=== PATIENT | male | born 1950 | race Hispanic/Latino ===

== ENCOUNTER 2018-01-08 11:53 | Emergency (ER) | payer BC ==
[~2018-01-08] VITALS: Ht 167.6 cm; Wt 104.3 kg
[~2018-01-08 11:53] MED LIST: ACTOS15 MG PO; ATENOLOL100 MG PO; BENAZEPRIL HCL20 MG PO; CRESTOR20 MG PO; GLIPIZIDE XL5 MG PO; JANUVIA100 MG PO; LEVEMIR100 UNIT/1 SQ; LIPITOR40 MG PO; METFORMIN HCL1000 M1 PO; PLAVIX75 MG PO; TRULICITY INJ
[2018-01-08] MEDS ORDERED: AZITHROMYCIN 250 MG TAB PO ONE (12:15)
[2018-01-08] MEDS ORDERED: ACETAMINOPHEN/CODEINE 300MG - 30MG TAB PO ONE (12:15)
[2018-01-08] MEDS ORDERED: PREDNISONE 20 MG TAB PO ONE (12:15)
--- NOTE | 2018-01-08 13:51 | Diagnostic Imaging Report ---
EXAMINATION: CHEST 2 VIEWS INDICATION: Cough COMPARISON: None FINDINGS: TUBES and LINES: Sternal wires.. LUNGS: Lungs are well inflated. Mild perihilar peribronchial hazy opacity could be due to bronchitis. There is no evidence of pneumonia or pulmonary edema. PLEURA: No pleural effusion or pneumothorax. HEART AND MEDIASTINUM: The cardiomediastinal silhouette is unremarkable. BONES AND SOFT TISSUES: No acute osseous lesion. Soft tissues are unremarkable. UPPER ABDOMEN: No free air under the diaphragm. IMPRESSION: Mild perihilar peribronchial hazy opacity could be due to bronchitis Signed by: Dr. Robert Ibarra M.D. on 01/08/2018 1:48 PM
[2018-01-08 16:26] VITALS: BP 168/80
== END 2018-01-08 15:06 | disposition home or self-care (01) ==
LOC: ER 11:53
DX: R05 Cough (principal)
CPT/HCPCS: 71046; 99283; J7512

== ENCOUNTER → 2018-01-14 | Outpatient (CLI) | payer BC ==
--- NOTE | 2018-01-14 13:37 | Diagnostic Imaging Report ---
EXAMINATION: PA and lateral views of the chest. COMPARISON: 01/08/2018 CLINICAL HISTORY: Bronchitis DISCUSSION: Lungs are well-inflated and without focal consolidation, pleural effusion, or pneumothorax. Perihilar hazy opacities are less conspicuous on the current study. Stable cardiomediastinal contour with median sternotomy wires and mediastinal surgical clips. No pulmonary edema. No acute osseous abnormality. IMPRESSION: No acute cardiopulmonary abnormalities. Signed by: Dr. Eliud Lazaro M.D. on 01/14/2018 1:34 PM
== END ==
LOC: RAD 12:43
PROVIDERS: ATTEND Family Medicine
DX: J40 Bronchitis, not specified as acute or chronic (principal)
CPT/HCPCS: 71046

== ENCOUNTER 2018-07-06 15:16 | Observation (INO) | payer BC ==
[2018-07-01 12:03] LABS: BASOPHILS # (AUTO) 0.1 (0.0-0.1); BASOPHILS % 0.6 % (0.0-1.0); EOSINOPHILS # (AUTO) 0.2 (0.0-0.4); EOSINOPHILS % 2.8 % (0.0-6.0); HEMATOCRIT 33.4 % (38.2-49.6); HEMOGLOBIN 11.1 g/dL (14.0-18.0); LYMPHOCYTES # (AUTO) 1.4 (1.0-3.2); LYMPHOCYTES % 16.9 % (18.0-39.1); MEAN CORPUSCULAR HEMOGLOBIN 29.2 pg (28-32); MEAN CORPUSCULAR HGB CONC 33.2 g/dL (31-35); MEAN CORPUSCULAR VOLUME 87.9 fL (81-99); MONOCYTES # (AUTO) 0.7 (0.2-0.8); NEUTROPHILS # (AUTO) 5.9 (2.1-6.9); PLATELET COUNT 220 x10e3/uL (140-360); RED CELL DISTRIBUTION WIDTH 12.9 % (11.7-14.4)
[2018-07-01 12:20] LABS: ALBUMIN/GLOBULIN RATIO 1.1 (0.8-2.0); ANION GAP 14.8 mmol/L (8-16); CALCIUM 9.8 mg/dL (8.4-10.2); CREATININE, SERUM 1.67 mg/dL (0.72-1.25); POTASSIUM 3.8 mmol/L (3.5-5.1)
[2018-07-06] VITALS (10 sets, daily range): BP systolic 129–162; BP diastolic 51–80
[~2018-07-06] VITALS: Ht 167.6 cm; Wt 102.5 kg
--- NOTE | 2018-07-06 10:45 | NUR ---
pt in ACU 10, prepped for procedure. Alert oriented and appropriate, PERRLA, respirations even and unlabored to room air. Pulses x4 extremities equal and palpable. Pedal pulses PT/DP strong and marked. Cap fill brisk < 3 sec. bilateral lower extremities symmetrical. Skin warm and dry integrity appears intact in general. IV 20g started to left forearm x1 attempt. presents healthy w/o s/s of infiltration or complaint. NS 0.9% started at 100ml/hr per dial flow. Abdomen soft and supple. pt offered toileting, denies need to urinate or defecate. Personal affects with patient. Family to bedside. Pt and family verbalizes understanding of POC. Pre-Op Meds benadryl and xanax given. bed low and locked, side rails up x2 and call light at side. -cgf
--- NOTE | 2018-07-06 14:12 | NUR ---
Received pt from lab rep to rm#[id number].Identiferx2 [address] [facility] fix Stent to circumflex via rt vascade site.No hematoma or bleeding noted at site. 2versed/50Fentynal Angio max drip completed with left arm iv site w/o infiltration and infusing via dial-a -flow at 200cchr. Back to baseline orientation Resp shallow and regular 100% sat on RA Abdomen soft and non tender Bilateral PPx4 DP/PT present. Flat till 5pm and dc papers with POC given to family Knows importance of f/o in 2wks Denies CP or SOB No gross issues pain pallor,pressure or dysrhythmia. ds/rn
[~2018-07-06 15:16] MED LIST changes: +ALLOPURINOL100 MG PO; +ALPRAZOLAM 0.5 MG TAB ONE; +ASPIRIN 325 MG TAB ONE; +BIVALRIUDIN 250 MG/VIAL VIAL IV ONE; +DIPHENHYDRAMINE HCL 25 MG CAP ONE; +FENTANYL CITRATE/PF 100MCG/2 ML INJ ONE; +FERROUS SULFAT325 MG PO; +HEPARIN SOD/SOD CHLORIDE 2,000 ML ONE; +HYDROCHLOROTHIA25 MG PO; +IOPAMIDOL 370 MG/ML 200 ML INFUS..BTL INJ ONE; +LASIX20 MG PO; +LIDOCAINE HCL 2% LOCAL 20 ML VIAL ONE; +LOSARTAN POTAS100 MG PO; +MIDAZOLAM HCL 2 MG/2 ML VIAL ONE; +PANTOPRAZOLE SO40 MG PO; +SODIUM BICARBO650 MG PO; +SODIUM CHLORIDE 0.9% 1000ML 1,000 ML ONE; +SODIUM CHLORIDE 0.9% 50ML 50 ML ONE; +TICAGRELOR 90 MG TABLET ONE
--- OUTSIDE RECORDS SUMMARY | 2018-07-06 15:18 | XMS REPORT ---
Author Author [facility] Address Unknown Phone Unavailable Care Team Providers Care Icer Machine Operator Name Role Phone MERCEDEZ HUTCHINSON Unavailable Unavailable Cyndee FISCHER Unavailable Unavailable Problems This patient has no known problems. Allergies, Adverse Reactions, Alerts This patient has no known allergies or adverse reactions. Medications This patient has no known medications. Results Test Description Test Time Test Comments Text Results Atomic Results Result Comments CHEST 2 VIEWS 2018-01-14 13:32:00 [place] [address] Patient Name: BUTCH MOREIRA MR #: [id number] : 1950 Age/Sex: 67/M Req #: [id number] Adm Physician: Ordered by: MERCEDEZ HUTCHINSON MD Report #: [id number] Location: [facility] Room/Bed: Procedure: [id number] DX/CHEST 2 VIEWS Exam Date: Exam Time: REPORT STATUS: Signed EXAMINATION: PA and lateral views of the chest. COMPARISON: 01/08/2018 CLINICAL HISTORY: Bronchitis DISCUSSION: Lungs are well- inflated and without focal consolidation, pleural effusion, or pneumothorax. Perihilar hazy opacities are less conspicuous on the current study. Stable cardiomediastinal contour with median sternotomy wires and mediastinal surgical clips. No pulmonary edema. No acute osseous abnormality. IMPRESSION: No acute cardiopulmonary abnormalities. Signed by: Dr. Shalini Gonzalez M.D. on 01/14/2018 1:34 PM Dictated By: SHALINI GONZALEZ MD Transcribed By: RASHARD on 01/14/181333 COPY TO: MERCEDEZ HUTCHINSON MD CHEST 2 VIEWS 2018-01-08 13:48:00 [place] [address] Patient Name: BUTCH MOREIRA MR #: [id number] : 1950 Age/Sex: 67/M Req #: [id number] Adm Physician: Ordered by: OLIVIA FISCHER MD Report #: [id number] Location: ER Room/Bed: Procedure: [id number] DX/CHEST 2 VIEWS Exam Date: 01/08/18 Exam Time: 1328 REPORT STATUS: Signed EXAMINATION: CHEST 2 VIEWS INDICATION: Cough COMPARISON: None FINDINGS: TUBES and LINES: Sternal wires.. LUNGS: Lungs are well inflated. Mild perihilar peribronchial hazy opacity could be due to bronchitis. There is no evidence of pneumonia or pulmonary edema. PLEURA: No pleural effusion or pneumothorax. HEART AND MEDIASTINUM: The cardiomediastinal silhouette is unremarkable. BONES AND SOFT TISSUES: No acute osseous lesion. Soft tissues are unremarkable. UPPER ABDOMEN: No free air under the diaphragm. IMPRESSION: Mild perihilar peribronchial hazy opacity could be due to bronchitis Signed by: Dr. Robert Ibarra M.D. on 01/08/2018 1:48 PM Dictated By: ROBERT IBARRA MD, MD 1348 Transcribed By: RASHARD on 01/08/18 1348 COPY TO: OLIVIA FISCHER MD
--- NOTE | 2018-07-06 15:30 | NUR ---
1530Trnasfer to floor care with tel to Ilya ROGERS with dc time 1700pm No gross issues pain pallor pressure or dysrhythmia.Rt groin vascade approach Dr Broderick Stent fix to circumflex. Has copies of dc papers Bedside nurse aware of pt status left pt with side rail s up call light at bedside and in low lock position. Has food tray to eat. Family at bedside. Denies CP or SOB iv site remains intact w/o s/s infiltration.Stasis remains present to vascade site. ds/rn
--- NOTE | 2018-07-06 21:20 | Operative Report ---
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 INDICATION: Coronary artery disease, abnormal stress test with angina. PROCEDURES PERFORMED: 1. Left heart catheterization, selective coronary angiography. 2. PTCA and stent placement to the circumflex artery. 3. Selective cannulation of one venous and one arterial bypass conduit. COMPLICATIONS: None. RECOMMENDATIONS: Staged intervention on the right coronary and the left anterior descending arteries. DESCRIPTION OF PROCEDURE: Access obtained in the right femoral artery. A 6-Iranian sheath was placed. Diagnostic coronary angiogram revealed patent left main, left anterior descending artery, proximal 80%, heavily calcified stenosis. Stent was patent in the mid left anterior descending artery, circumflex mid 80% stenosis. Right coronary artery had mid 90% stenosis, heavily calcified. The saphenous vein bypass to the right posterior descending artery was widely patent. Left internal mammary artery was occluded. No other saphenous vein bypasses were identified. Left ventricular end-diastolic pressure of 10. No gradient across aortic valve pullback. A decision was made to intervene on the circumflex artery. The patient received intravenous Angiomax and oral Brilinta and aspirin for anticoagulation. The left main was cannulated using an XB3.56-Iranian guiding catheter and short loose wires advanced across the lesion for support. Primary stent 2.0 x 8 followed by 2.5 mm noncompliant balloon for postdilatation. Excellent end result, less than 10% residual stenosis. EDITH-3 flow. No complications. Right groin repaired using Vascade closure device. The patient was discharged home same day. Bobby Broderick MD KSB/MODL /[id number]
== END 2018-07-06 17:06 | disposition home or self-care (01) ==
LOC: CATH LAB 15:16 → PACU V 15:18 → IMCU 15:55
PROVIDERS: ADMIT Internal Medicine Interventional Cardiology; ATTEND Internal Medicine Interventional Cardiology
DX: I25.118 Atherosclerotic heart disease of native coronary artery with other forms of angina pectoris (principal); Z01.812 Encounter for preprocedural laboratory examination; Z82.49 Family history of ischemic heart disease and other diseases of the circulatory system; E11.22 Type 2 diabetes mellitus with diabetic chronic kidney disease; I13.10 Hypertensive heart and chronic kidney disease without heart failure, with stage 1 through stage 4 chronic kidney disease, or unspecified chronic kidney disease; N18.9 Chronic kidney disease, unspecified; E78.5 Hyperlipidemia, unspecified; I25.810 Atherosclerosis of coronary artery bypass graft(s) without angina pectoris; Z95.1 Presence of aortocoronary bypass graft; Z95.5 Presence of coronary angioplasty implant and graft; Z79.4 Long term (current) use of insulin
CPT/HCPCS: 36415; 80053; 85025; 92928; 93459; C1725 ×2; C1760; C1769 ×2; C1874; C1887; G0378; J0583; J2001; J2250; J7030; Q9967

== ENCOUNTER → 2018-07-26 | Day surgery (SDC) | payer BC ==
[2018-07-22 15:14] LABS: BASOPHILS # (AUTO) 0.1 (0.0-0.1); BASOPHILS % 0.8 % (0.0-1.0); EOSINOPHILS # (AUTO) 0.3 (0.0-0.4); EOSINOPHILS % 3.3 % (0.0-6.0); HEMATOCRIT 30.6 % (38.2-49.6); HEMOGLOBIN 10.2 g/dL (14.0-18.0); LYMPHOCYTES # (AUTO) 1.8 (1.0-3.2); LYMPHOCYTES % 22.1 % (18.0-39.1); MEAN CORPUSCULAR HEMOGLOBIN 29.6 pg (28-32); MEAN CORPUSCULAR HGB CONC 33.3 g/dL (31-35); MEAN CORPUSCULAR VOLUME 88.7 fL (81-99); MONOCYTES # (AUTO) 0.8 (0.2-0.8); MONOCYTES % 9.6 % (4.4-11.3); NEUTROPHILS # (AUTO) 5.1 (2.1-6.9); NEUTROPHILS % 63.2 % (38.7-80.0); PLATELET COUNT 233 x10e3/uL (140-360); RED BLOOD COUNT 3.45 x10e6/uL (4.3-5.7); RED CELL DISTRIBUTION WIDTH 13.2 % (11.7-14.4)
[2018-07-22 15:34] LABS: ALBUMIN 3.7 g/dL (3.5-5.0); ALBUMIN/GLOBULIN RATIO 1.2 (0.8-2.0); CALCIUM 9.7 mg/dL (8.4-10.2); CREATININE, SERUM 1.58 mg/dL (0.72-1.25)
[2018-07-26] VITALS (7 sets, daily range): BP systolic 120–152; BP diastolic 49–67
[~2018-07-26] VITALS: Ht 167.6 cm; Wt 103.4 kg
[~2018-07-26] MED LIST changes: +ADENOSINE 6MG/2ML 0 ML ONE; -ALPRAZOLAM 0.5 MG TAB ONE; +ATROPINE SULFATE 0.1 MG/ML 10ML SYR ONE; -DIPHENHYDRAMINE HCL 25 MG CAP ONE; +SODIUM CHLORIDE 0.9% 500ML 0 ML ONE; +VERAPAMIL HCL 2.5 MG/ML 2 ML VIAL ONE
--- NOTE | 2018-07-26 15:26 | Operative Report ---
DATE OF PROCEDURE: 07/26/2018 SURGEON: Bobby Broderick MD INDICATION: 1. Coronary artery disease, abnormal stress test. 2. Staged intervention on the left anterior descending artery. COMPLICATIONS: None. BLOOD LOSS: Minimal. RECOMMENDATIONS: Staged intervention of the right coronary artery. DESCRIPTION OF PROCEDURE: Access was obtained in the right radial artery. A 6-Bulgarian sheath was placed. The patient received intravenous Angiomax for anticoagulation. The left main was cannulated using an XB 3.5, 6-Bulgarian guiding catheter. Heavily calcified left main stent and the circumflex artery was patent. Proximal left anterior descending artery heavily calcified, tight 80% stenosis. Stent in the mid left anterior descending artery, had mild in-stent restenosis. LV end-diastolic pressure of 12. No gradient across the aortic valve on pullback. A decision was made to intervene with atherectomy on the left anterior descending artery. A long Viper wire was advanced across the distal left anterior descending artery for support. Orbital atherectomy using a CSI [place] was performed following with balloon angioplasty with 2.5 mm balloon and then two overlapping 2.75 x 26 and 3.0 x 26 mm Resolute Balwinder stents were deployed at 12 and 14 atmospheres respectively in overlapping fashion. Excellent end stent stenosis, less than 10% residual stenosis, EDITH-3 flow. No complications. Wire and guide sheath were removed. TR band applied. The patient was discharged home same day. Bobby Broderick MD KSB/MODL /[id number]
--- NOTE | 2018-07-26 19:05 | NUR ---
Pt meets DC criteria after holding an additional expected hour due to oozing during TR air removal. right wrist assessed for s/s of complication and presence of hematoma. skin warm, dry, no discolor, and pulses present. IV removed from left forearm. Distal tip appears intact. VS WNL. Pt denies pain, sob, or need at this time. Family at bedside. Review of discharge paperwork and follow up instructions. verbalized understanding. Pt to wheelchair and transported to front of hospital. Transferred to private vehicle under own strength w/o incident with DC paperwork in hand. - c
== END | disposition home or self-care (01) ==
LOC: CATH LAB 10:10
PROVIDERS: ATTEND Internal Medicine Interventional Cardiology
DX: I25.118 Atherosclerotic heart disease of native coronary artery with other forms of angina pectoris (principal); I25.84 Coronary atherosclerosis due to calcified coronary lesion; T82.855A Stenosis of coronary artery stent, initial encounter; Y83.8 Other surgical procedures as the cause of abnormal reaction of the patient, or of later complication, without mention of misadventure at the time of the procedure; Z95.5 Presence of coronary angioplasty implant and graft; Z95.1 Presence of aortocoronary bypass graft; I13.0 Hypertensive heart and chronic kidney disease with heart failure and stage 1 through stage 4 chronic kidney disease, or unspecified chronic kidney disease; E11.22 Type 2 diabetes mellitus with diabetic chronic kidney disease; N18.3 Chronic kidney disease, stage 3 (moderate); I50.9 Heart failure, unspecified; Z79.4 Long term (current) use of insulin; Z79.84 Long term (current) use of oral hypoglycemic drugs; I87.2 Venous insufficiency (chronic) (peripheral); Z79.02 Long term (current) use of antithrombotics/antiplatelets
CPT/HCPCS: 36415; 80053; 85025; 92933; C1724; C1725; C1874 ×2; J0583; J2001; J2250; J7030; Q9967; 92924; 92928; J0153; J7040

== ENCOUNTER 2018-08-17 05:56 | Observation (INO) | payer BC ==
[2018-08-11 10:31] LABS: BASOPHILS # (AUTO) 0.1 (0.0-0.1); BASOPHILS % 0.8 % (0.0-1.0); EOSINOPHILS # (AUTO) 0.2 (0.0-0.4); EOSINOPHILS % 2.9 % (0.0-6.0); HEMATOCRIT 32.2 % (38.2-49.6); HEMOGLOBIN 10.7 g/dL (14.0-18.0); LYMPHOCYTES # (AUTO) 1.4 (1.0-3.2); LYMPHOCYTES % 18.3 % (18.0-39.1); MEAN CORPUSCULAR HEMOGLOBIN 29.6 pg (28-32); MEAN CORPUSCULAR HGB CONC 33.2 g/dL (31-35); MONOCYTES # (AUTO) 0.7 (0.2-0.8); MONOCYTES % 8.8 % (4.4-11.3); NEUTROPHILS # (AUTO) 5.4 (2.1-6.9); NEUTROPHILS % 68.4 % (38.7-80.0); PLATELET COUNT 217 x10e3/uL (140-360); RED BLOOD COUNT 3.62 x10e6/uL (4.3-5.7); RED CELL DISTRIBUTION WIDTH 12.8 % (11.7-14.4)
[2018-08-11 11:02] LABS: ALBUMIN 3.8 g/dL (3.5-5.0); ALBUMIN/GLOBULIN RATIO 1.1 (0.8-2.0); ANION GAP 15.5 mmol/L (8-16); CALCIUM 9.5 mg/dL (8.4-10.2); CREATININE, SERUM 1.8 mg/dL (0.72-1.25); POTASSIUM 4.5 mmol/L (3.5-5.1)
[~2018-08-17] VITALS: Ht 167.6 cm; Wt 103.9 kg
[2018-08-17] VITALS (15 sets, daily range): BP systolic 108–145; BP diastolic 54–95
[~2018-08-17 05:56] MED LIST changes: -ADENOSINE 6MG/2ML 0 ML ONE; -ASPIRIN 325 MG TAB ONE; -ATROPINE SULFATE 0.1 MG/ML 10ML SYR ONE; -BIVALRIUDIN 250 MG/VIAL VIAL IV ONE; -FENTANYL CITRATE/PF 100MCG/2 ML INJ ONE; -HEPARIN SOD/SOD CHLORIDE 2,000 ML ONE; -IOPAMIDOL 370 MG/ML 200 ML INFUS..BTL INJ ONE; -LIDOCAINE HCL 2% LOCAL 20 ML VIAL ONE; -MIDAZOLAM HCL 2 MG/2 ML VIAL ONE; -SODIUM CHLORIDE 0.9% 1000ML 1,000 ML ONE; -SODIUM CHLORIDE 0.9% 500ML 0 ML ONE; -SODIUM CHLORIDE 0.9% 50ML 50 ML ONE; -TICAGRELOR 90 MG TABLET ONE; -VERAPAMIL HCL 2.5 MG/ML 2 ML VIAL ONE
[2018-08-17] MEDS ORDERED: HEPARIN SOD (PORCINE) 1000 UNIT/ML 30ML ONE (07:02)
[2018-08-17] MEDS ORDERED: VERAPAMIL HCL 2.5 MG/ML 2 ML VIAL ONE (07:03)
[2018-08-17] MEDS ORDERED: SODIUM CHLORIDE 0.9% 1000ML 1,000 ML ONE (07:03)
[2018-08-17] MEDS ORDERED: FENTANYL CITRATE/PF 100MCG/2 ML INJ ONE (07:03)
[2018-08-17] MEDS ORDERED: IOPAMIDOL 370 MG/ML 200 ML INFUS..BTL INJ ONE ×2 (07:03→08:32)
[2018-08-17] MEDS ORDERED: HEPARIN SOD/SOD CHLORIDE 2,000 ML ONE (07:03)
[2018-08-17] MEDS ORDERED: LIDOCAINE HCL 2% LOCAL 20 ML VIAL ONE (07:03)
[2018-08-17] MEDS ORDERED: MIDAZOLAM HCL 2 MG/2 ML VIAL ONE (07:03)
[2018-08-17] MEDS ORDERED: NITROGLYCERIN/D5W 200 MCG/ML 250 ML ONE (07:04)
[2018-08-17] MEDS ORDERED: SODIUM CHLORIDE 0.9% 50ML 50 ML ONE (08:12)
[2018-08-17] MEDS ORDERED: BIVALRIUDIN 250 MG/VIAL VIAL IV ONE (08:12)
[2018-08-17] MEDS ORDERED: ATROPINE SULFATE 0.1 MG/ML 10ML SYR ONE (08:33)
[2018-08-17] MEDS ORDERED: TICAGRELOR 90 MG TABLET ONE (08:52)
[2018-08-17] MEDS ORDERED: ASPIRIN 325 MG TAB ONE (08:52)
--- NOTE | 2018-08-17 09:01 | NUR ---
0901am Bedside report received from SUE Link. Rm #[id number]. [facility] DR Broderick, RCA PCI stentx2. Rt TR band approach unable to fix. Rt groin approach achieved. Received with Alert oriented and appropriate, PERRLA, respirations even and unlabored to room air. Pulses x4 extremities equal and strong. Pedal pulses PT/DP palpable. Cap fill brisk < 3 sec. Skin warm and dry integrity appears D/I. IV 20g to left hand presents healthy w/o s/s of infiltration or complaint. Abdomen soft and supple. pt offered toileting, denies need to defecate. Voided qs Family called to bedside. Explained POC by Dr Broderick to pt. Reviewed POC to family,No personal affects with patient. Family remains at bedside Ebony . Pt and family verbalizes understanding of POC. Tele Observation bed ordered. Currently w/o complaint of pain or need. Monitor sinus aston.NO gross issues pain pallor pressure or dysrhythmia.NO oozing or hematoma noted. Offered ice chips only. leena/sue
--- NOTE | 2018-08-17 10:00 | NUR ---
1000am remains no gross issues pain, pallo,r pressure or dysrhythmia.No oozing or hematoma at rt groin sheath site Normal neruo vascular function.Ready for sheath pull at 1100am. Family remain at bedside POC discussed and copies of POC with family.leena/rn
--- NOTE | 2018-08-17 11:30 | NUR ---
1130 ACT 199 ok to pull sheath at 12noon 1201 sheath removed manual pressure held for 30min with stasis achieved Ewelina patch applied and ppx4 DP/PT No hematoma or oozing. Transfer to floor care(Tele observation)post for dc at 700pm. ds/rn
--- NOTE | 2018-08-17 12:05 | Operative Report ---
DATE OF PROCEDURE: 08/17/2018 SURGEON: Bobby Broderick MD INDICATION: Coronary artery disease, staged intervention on the right coronary artery. PROCEDURES PERFORMED: 1. Left heart catheterization, selective coronary angiography. 2. Stent placement to the mid right coronary artery. 3. Deployment of central venous catheter. 4. Deployment of right wrist TR band. COMPLICATIONS: Unable to cannulate RCA from right radial, femoral access was used. RECOMMENDATIONS: Dual antiplatelet therapy for life. DESCRIPTION OF PROCEDURE: Access obtained in the right radial artery. A 5-Polish sheath was placed. Extensive tortuosity of the right brachiocephalic artery, was not amenable to cannulate the right coronary artery with adequate support. Access obtained in the right femoral artery and in the right femoral vein for central venous access. The patient received intravenous Angiomax, oral Brilinta, and aspirin for anticoagulation. The right coronary artery was cannulated using a JR4 side-hole 6-Polish guiding catheter, 50% proximal and mid right coronary artery stenosis, moderate calcification, mid right coronary artery 80% focal stenosis. A short wire was advanced across the lesion. Primary stent 2.75 x 8 mm Resolute Baggs deployed at 18 atmospheres. Excellent end result, less than 10% residual stenosis, EDITH-3 flow. No complications. Right wrist TR band applied. The sheath in the groin removed under manual pressure. The patient observed for 6 hours in the hospital, subsequently discharged home same day. Bobby Broderick MD KSMinda/MODL /[id number]
--- NOTE | 2018-08-17 12:30 | NUR ---
ATTEMPTED TO TAKE 3ML OF AIR OUT OF ARM BAND. RIGHT WRIST SITE APPEARS TO HAVE SLIGHT OOZING. 2ML OF AIR PLACED BACK IN AND RIGHT WRIST SITE NOW APPEARS TO BE WITHOUT SIGNS OR SYMPTOMS OF ACTIVE BLEEDING AT THIS TIME. PULSE OX TO RIGHT THUMB. PATIENT AWAKE,ALERT, AND ORIENTEDX3. RESPIRATIONS EVEN AND UNLABORED ON ROOM AIR. PATIENT APPEARS TO BE IN NO SIGNS OF ACUTE DISTRESS AT THIS TIME.
--- NOTE | 2018-08-17 12:31 | NUR ---
HEMOSTASIS TO RIGHT GROIN SITE. HANNAH APPLIED TO RIGHT GROIN SITE. DRESSING PLACED PER PROTOCOL BY CRISTINA Cotter RN. RIGHT GROIN APPEARS TO BE WITHOUT SIGNS OR SYMPTOMS OF ACTIVE BLEEDING AT THIS TIME.
--- NOTE | 2018-08-17 13:15 | NUR ---
1315pm Phone report to Bertha Chatterjee for admission to tel obsv. till 5pm down time. Rt groin sheath pull stsis at 1231pm 30min hold Ewelina patch in place with ppx4 palpable. Rt TR band off with arm splint in place Adequate neuro vascular function. Tegederm 2x2 dressing with Coban. POC teaching completed with Eda ([phone]. Transported to floor care per Gudelia facilities operations technician box in place per stretcher Remain sinus bradycardia NO complaints CP or SOB.NO gross issues pain pallor pressure or dysthymia. ds/bertha
--- NOTE | 2018-08-17 13:15 | NUR ---
1315 completed rt tr band air release NO gross issues pain pallor pressure or dysrhythmia. Coban dressing with arm splint. for dc home tonight at 5pm Normal neuro vascular function and Rt groin site w/o s/s hematoma. Ewelina patch n place. Stasis achieved at 1231 with 30 minute hold manual pressure No gross issues pain pallor pressure or dysrhythmia.Escorted to floor care per RN staffvia stretcher and tele in place. Denies CP or SOB has copies of dc papers and aware of importance of f/o care. ds/rn
--- NOTE | 2018-08-17 13:22 | NUR ---
Patient transferred to unit from solar lab technician. Patient moved over to bed via 4 staff members. Right groin access checked and noted to be clean and dry. Pedal pulses palpable. No c/o pain. Patient to stay flat in bed until 1700. Will continue to monitor
--- NOTE | 2018-08-17 13:40 | NUR ---
RECEIVED PT TO FLOOR AA0X3. PT IS ON BED REST S/P HEART CATH RIGHT GROIN DRESSING IS DRY AND INTACT. BILATERAL PEDAL PULSES PRESENT 2+ RIGHT WRIST BRACE IN PLACE COVERED WITH COBAN DRY AND INTACT DIGITS TO THE RIGHT HAND ARE MOVABLE AND CAP REFILL IS PRESENT <3 SEC PT IS IN NO PAIN . FAMILY IS AT BEDSIDE. WILL CONTINUE TO MONITOR PT CLOSELY, SIDE RAILSX2, BED WHEELS LOCKED, CALL LIGHT IS WITHIN EASY REACH, INSTRUCTED TO CALL FOR ASSISTANCE IF NEDED
[2018-08-17] MEDS ORDERED: HYDRALAZINE HCL 20 MG/ML VIAL IV PRN (13:45)
[2018-08-17] MEDS ORDERED: MORPHINE SULFATE INJ 4 MG/ML INJ 1ML IV PRN (13:45)
--- NOTE | 2018-08-17 14:42 | NUR ---
RIGHT GROIN DRESSING IS DRY AND INTACT. BILATERAL PEDAL PULSES PRESENT 2+ RIGHT WRIST BRACE IN PLACE COVERED WITH COBAN DRY AND INTACT DIGITS TO THE RIGHT HAND ARE MOVABLE AND CAP REFILL IS PRESENT <3 SEC
--- NOTE | 2018-08-17 17:46 | NUR ---
PT OFF UNIT TO HOME DISCHARGE PAPERWORK AND INSTRUCTIONS GIVEN AT CLAY DIGGER PT HAS PAPERWORK WITH HIM UNDERSTANDS TO KEEP BRACE AND IMMOBILIZER ON RIGHT UNTIL TOMORROW MORNING RIGHT GROIN DRESSING REMAINS DRY WELL PT IV DC PRESSURE DRESSING APPLIED AND TAPED PT IS NOW OFF UNIT TO HOME
== END 2018-08-17 17:43 | disposition home or self-care (01) ==
LOC: CATH LAB 05:56 → CATH LAB V 11:55 → MED/SURG 13:21
PROVIDERS: ADMIT Internal Medicine Interventional Cardiology; ATTEND Internal Medicine Interventional Cardiology
DX: I25.708 Atherosclerosis of coronary artery bypass graft(s), unspecified, with other forms of angina pectoris (principal); Z01.812 Encounter for preprocedural laboratory examination; I10 Essential (primary) hypertension; I87.2 Venous insufficiency (chronic) (peripheral); Z95.1 Presence of aortocoronary bypass graft; Z95.5 Presence of coronary angioplasty implant and graft; E11.9 Type 2 diabetes mellitus without complications; Z79.84 Long term (current) use of oral hypoglycemic drugs; E78.5 Hyperlipidemia, unspecified; N28.9 Disorder of kidney and ureter, unspecified
CPT/HCPCS: 36415; 80053; 85025; 92928; C1725; C1760; C1766; C1769; C1874; G0378; J0583; J1644; J2001; J2250; J7030; Q9967; J3010

== ENCOUNTER → 2019-10-26 | Day surgery (SDC) | payer BC, OTHER ==
[2019-10-21 15:14] LABS: BASOPHILS # (AUTO) 0.1 (0.0-0.1); BASOPHILS % 0.7 % (0.0-1.0); EOSINOPHILS # (AUTO) 0.2 (0.0-0.4); EOSINOPHILS % 2.1 % (0.0-6.0); HEMATOCRIT 30.5 % (38.2-49.6); HEMOGLOBIN 9.8 g/dL (14.0-18.0); LYMPHOCYTES # (AUTO) 1.4 (1.0-3.2); MEAN CORPUSCULAR HEMOGLOBIN 28.2 pg (28-32); MEAN CORPUSCULAR HGB CONC 32.1 g/dL (31-35); MEAN CORPUSCULAR VOLUME 87.9 fL (81-99); MONOCYTES # (AUTO) 0.7 (0.2-0.8); MONOCYTES % 9.2 % (4.4-11.3); NEUTROPHILS # (AUTO) 4.7 (2.1-6.9); NEUTROPHILS % 66.4 % (38.7-80.0); PLATELET COUNT 210 x10e3/uL (140-360); RED BLOOD COUNT 3.47 x10e6/uL (4.3-5.7); RED CELL DISTRIBUTION WIDTH 13.6 % (11.7-14.4)
[~2019-10-26] MED LIST changes: +FENTANYL CITRATE/PF 100MCG/2 ML INJ ONE; +HYDRALAZINE HCL25 MG PO; +LIDOCAINE HCL 2% LOCAL INJ 5 ML SDV VIAL INJ ONE; +MIDAZOLAM HCL 2 MG/2 ML VIAL ONE; +OZEMPIC1 MG/0.75 SC; +PROPOFOL IV EMULSION 10 MG/ML 20 ML VIAL ONE; +TRESIBA100 UNIT/1 SQ
[2019-10-26 13:05] VITALS: BP 130/51
== END | disposition home or self-care (01) ==
LOC: OR 10:14
PROVIDERS: ATTEND Internal Medicine Gastroenterology
DX: Z12.11 Encounter for screening for malignant neoplasm of colon (principal); Z86.010 Personal history of colon polyps; K29.00 Acute gastritis without bleeding; K44.9 Diaphragmatic hernia without obstruction or gangrene; K21.9 Gastro-esophageal reflux disease without esophagitis; K57.30 Diverticulosis of large intestine without perforation or abscess without bleeding; K64.8 Other hemorrhoids; Z71.3 Dietary counseling and surveillance; I10 Essential (primary) hypertension; E11.9 Type 2 diabetes mellitus without complications; Z01.810 Encounter for preprocedural cardiovascular examination; Z01.812 Encounter for preprocedural laboratory examination; Z11.59 Encounter for screening for other viral diseases; Z79.02 Long term (current) use of antithrombotics/antiplatelets; Z79.84 Long term (current) use of oral hypoglycemic drugs; Z79.4 Long term (current) use of insulin; Z68.37 Body mass index [BMI] 37.0-37.9, adult; Z87.891 Personal history of nicotine dependence
CPT/HCPCS: 36415 ×2; 43239; 45378; 82948; 85025; 88305; 88312; 93005; J2001; J2250; J2704; J3010; U0002

== ENCOUNTER → 2020-05-15 | Day surgery (SDC) | payer BC, OTHER ==
[~2020-05-15] MED LIST changes: +ASPIRIN81 MG PO; +CLONIDINE HCL0.1 M1 PO; -FENTANYL CITRATE/PF 100MCG/2 ML INJ ONE; -LIDOCAINE HCL 2% LOCAL INJ 5 ML SDV VIAL INJ ONE; -MIDAZOLAM HCL 2 MG/2 ML VIAL ONE; +OR PHACO EYE KIT ONE; +PREOP PHACO EYE KIT ONE; -PROPOFOL IV EMULSION 10 MG/ML 20 ML VIAL ONE
[2020-05-15 14:57] VITALS: BP 134/57
== END | disposition home or self-care (01) ==
LOC: OR 12:00
PROVIDERS: ATTEND Ophthalmology
DX: H25.11 Age-related nuclear cataract, right eye (principal); G47.33 Obstructive sleep apnea (adult) (pediatric); I25.810 Atherosclerosis of coronary artery bypass graft(s) without angina pectoris; E11.22 Type 2 diabetes mellitus with diabetic chronic kidney disease; I12.9 Hypertensive chronic kidney disease with stage 1 through stage 4 chronic kidney disease, or unspecified chronic kidney disease; N18.30 Chronic kidney disease, stage 3 unspecified; K21.9 Gastro-esophageal reflux disease without esophagitis; F17.210 Nicotine dependence, cigarettes, uncomplicated; Z01.812 Encounter for preprocedural laboratory examination; Z20.822 Contact with and (suspected) exposure to COVID-19; Z79.02 Long term (current) use of antithrombotics/antiplatelets; Z79.82 Long term (current) use of aspirin; Z79.4 Long term (current) use of insulin; Z86.16 Personal history of COVID-19; Z95.1 Presence of aortocoronary bypass graft; Z95.5 Presence of coronary angioplasty implant and graft
CPT/HCPCS: 36415; 82948; U0002; V2632

== ENCOUNTER → 2020-05-29 | Day surgery (SDC) | payer BC, OTHER ==
[~2020-05-29] MED LIST changes: +BASAGLAR K100 UNIT/1 INJ; +FENTANYL CITRATE/PF 100MCG/2 ML INJ ONE; +MIDAZOLAM HCL 2 MG/2 ML VIAL ONE
[2020-05-29 12:20] VITALS: BP 133/68
== END | disposition home or self-care (01) ==
LOC: OR 08:28
PROVIDERS: ATTEND Ophthalmology
DX: H25.12 Age-related nuclear cataract, left eye (principal); G47.33 Obstructive sleep apnea (adult) (pediatric); I25.810 Atherosclerosis of coronary artery bypass graft(s) without angina pectoris; E78.5 Hyperlipidemia, unspecified; I25.2 Old myocardial infarction; K21.9 Gastro-esophageal reflux disease without esophagitis; E11.22 Type 2 diabetes mellitus with diabetic chronic kidney disease; I12.9 Hypertensive chronic kidney disease with stage 1 through stage 4 chronic kidney disease, or unspecified chronic kidney disease; N18.30 Chronic kidney disease, stage 3 unspecified; Z01.812 Encounter for preprocedural laboratory examination; Z20.822 Contact with and (suspected) exposure to COVID-19; Z79.82 Long term (current) use of aspirin; Z79.02 Long term (current) use of antithrombotics/antiplatelets; Z79.4 Long term (current) use of insulin; Z95.1 Presence of aortocoronary bypass graft; Z95.5 Presence of coronary angioplasty implant and graft; Z87.891 Personal history of nicotine dependence
CPT/HCPCS: 36415; 66984; 82948; U0002; J2250; J3010; V2632

== ENCOUNTER 2021-08-08 23:09 | Emergency (ER) | payer BC, OTHER ==
[~2021-08-08] VITALS: Ht 167.6 cm; Wt 103.9 kg
[~2021-08-08 23:09] MED LIST changes: -FENTANYL CITRATE/PF 100MCG/2 ML INJ ONE; -MIDAZOLAM HCL 2 MG/2 ML VIAL ONE; -OR PHACO EYE KIT ONE; -PREOP PHACO EYE KIT ONE
== END 2021-08-08 23:45 | disposition home or self-care (01) ==
LOC: ER 23:28
DX: L02.214 Cutaneous abscess of groin (principal); I12.9 Hypertensive chronic kidney disease with stage 1 through stage 4 chronic kidney disease, or unspecified chronic kidney disease; E11.22 Type 2 diabetes mellitus with diabetic chronic kidney disease; N18.30 Chronic kidney disease, stage 3 unspecified; Z95.1 Presence of aortocoronary bypass graft; Z95.5 Presence of coronary angioplasty implant and graft
CPT/HCPCS: 99283

== ENCOUNTER 2022-06-06 10:58 | Inpatient (IN) | payer BC, MEDICARE, OTHER ==
[~2022-06-06] VITALS: Ht 167.6 cm; Wt 104.3 kg
[2022-06-06] MEDS ORDERED: ALBUTEROL/IPRATROPIUM 3 ML NEB NEB ONE (11:15)
[2022-06-06] MEDS ORDERED: FUROSEMIDE INJ 10 MG/ML 4 ML VIAL IV ONE (11:15)
[2022-06-06] MEDS ORDERED: ALBUTEROL/IPRATROPIUM 3 ML NEB ONE (11:30)
[2022-06-06] MEDS ORDERED: FUROSEMIDE INJ 10 MG/ML 4 ML VIAL ONE (11:30)
[2022-06-06] MEDS ORDERED: VITAMIN D250 MC1 (12:03)
[2022-06-06] MEDS ORDERED: FUROSEMIDE40 MG PO (12:03)
[2022-06-06] MEDS ORDERED: VITAMIN D350 MCG (12:03)
[2022-06-06] MEDS ORDERED: STROVITE FORTE1 EACH (12:03)
[2022-06-06] MEDS ORDERED: VITAMIN B-121000 MCG PO (12:03)
[2022-06-06] MEDS ORDERED: DEXTROSE 50% SYRINGE 50 ML IV PRN (12:45)
[2022-06-06] MEDS ORDERED: ONDANSETRON HCL INJ 2MG/ML 2ML 2 MG/ML VIAL IV PRN (12:45)
[2022-06-06 14:44] VITALS: BP 155/56
[2022-06-06 15:01] VITALS: BP 155/56
[2022-06-06] MEDS: INSULIN REGULAR, HUMAN 100 UNIT/1 ML SQ SCH ×2 (15:45→22:07)
[2022-06-06 16:20] VITALS: BP 155/56
[2022-06-06 16:24] LABS: CREATINE KINASE MB 1.4 ng/mL (0-5.0)
[2022-06-06 20:00] VITALS: BP 157/59
[2022-06-06 20:42] VITALS: BP 157/59
[2022-06-06 22:34] LABS: CREATINE KINASE MB 1.2 ng/mL (0-5.0)
[2022-06-07] VITALS (7 sets, daily range): BP systolic 140–162; BP diastolic 45–63
[2022-06-07 06:55] LABS: BASOPHILS % 0.7 % (0.0-1.0); EOSINOPHILS # (AUTO) 0.2 (0.0-0.4); EOSINOPHILS % 4.1 % (0.0-6.0); HEMATOCRIT 24.9 % (38.2-49.6); HEMOGLOBIN 7.9 g/dL (14.0-18.0); LYMPHOCYTES # (AUTO) 1.3 (1.0-3.2); MEAN CORPUSCULAR HEMOGLOBIN 28.5 pg (28-32); MEAN CORPUSCULAR HGB CONC 31.7 g/dL (31-35); MEAN CORPUSCULAR VOLUME 89.9 fL (81-99); MONOCYTES # (AUTO) 0.7 (0.2-0.8); MONOCYTES % 11.7 % (4.4-11.3); NEUTROPHILS # (AUTO) 3.6 (2.1-6.9); NEUTROPHILS % 60.8 % (38.7-80.0); PLATELET COUNT 202 x10e3/uL (140-360); RED BLOOD COUNT 2.77 x10e6/uL (4.3-5.7); RED CELL DISTRIBUTION WIDTH 13.7 % (11.7-14.4)
[2022-06-07 07:19] LABS: ALBUMIN 3.2 g/dL (3.5-5.0); ANION GAP 14.2 mmol/L (8-16); CALCIUM 9.4 mg/dL (8.4-10.2); CREATININE, SERUM 1.24 mg/dL (0.72-1.25); POTASSIUM 4.2 mmol/L (3.5-5.1)
[2022-06-07] MEDS: INSULIN REGULAR, HUMAN 100 UNIT/1 ML SQ SCH ×4 (07:30→21:42)
[2022-06-07] MEDS: FUROSEMIDE INJ 10 MG/ML 4 ML VIAL IV SCH ×2 (08:19→20:41)
[2022-06-07 09:58] LABS: CREATINE KINASE MB 1.1 ng/mL (0-5.0)
[2022-06-07] MEDS ORDERED: POTASSIUM CHLORIDE 10MEQ EA PO PRN (10:15)
[2022-06-07] MEDS ORDERED: PANTOPRAZOLE SOD 40 MG TABEC PO SCH (10:15)
[2022-06-07] MEDS ORDERED: HYDRALAZINE HCL 20 MG/ML VIAL IV PRN (10:30)
[2022-06-07] MEDS: POTASSIUM CHLORIDE 10MEQ EA PO SCH (11:43)
[2022-06-07] MEDS: CLOPIDOGREL BISULFATE 75 MG TAB PO SCH (11:43)
[2022-06-07 11:57] LABS: THYROID STIMULATING HORMONE 3.272 uIU/mL (0.350-4.940)
[2022-06-07] MEDS ORDERED: SODIUM CHLORIDE 0.9% 250ML 250 ML ONE (13:46)
[2022-06-07] MEDS: IRON SUCROSE 100 MG in SODIUM CHLORIDE 0.9% 100 ML IV SCH (13:51)
[2022-06-07] MEDS: HYDRALAZINE HCL 25 MG TAB PO SCH (17:37)
[2022-06-07] MEDS: LOSARTAN POTASSIUM 100 MG TAB PO SCH (20:41)
[2022-06-07] MEDS: ATORVASTATIN 40 MG TAB PO SCH (20:42)
[2022-06-07] MEDS: ATENOLOL 50 MG TAB PO SCH (20:42)
[2022-06-07] MEDS: INSULIN GLARGINE 100 UNITS/ML VIAL SQ SCH (21:41)
[2022-06-08 03:18] VITALS: BP 148/59
[2022-06-08 05:18] LABS: BASOPHILS # (AUTO) 0.1 (0.0-0.1); BASOPHILS % 0.8 % (0.0-1.0); EOSINOPHILS # (AUTO) 0.3 (0.0-0.4); EOSINOPHILS % 4.1 % (0.0-6.0); HEMATOCRIT 27.7 % (38.2-49.6); HEMOGLOBIN 8.8 g/dL (14.0-18.0); LYMPHOCYTES # (AUTO) 1.3 (1.0-3.2); LYMPHOCYTES % 21.6 % (18.0-39.1); MEAN CORPUSCULAR HEMOGLOBIN 28.4 pg (28-32); MEAN CORPUSCULAR HGB CONC 31.8 g/dL (31-35); MEAN CORPUSCULAR VOLUME 89.4 fL (81-99); MONOCYTES # (AUTO) 0.7 (0.2-0.8); MONOCYTES % 12.1 % (4.4-11.3); NEUTROPHILS # (AUTO) 3.7 (2.1-6.9); NEUTROPHILS % 60.6 % (38.7-80.0); PLATELET COUNT 220 x10e3/uL (140-360); RED CELL DISTRIBUTION WIDTH 13.2 % (11.7-14.4)
[2022-06-08 05:41] LABS: ANION GAP 13.6 mmol/L (8-16); CALCIUM 9.6 mg/dL (8.4-10.2); CREATININE, SERUM 1.35 mg/dL (0.72-1.25); POTASSIUM 3.6 mmol/L (3.5-5.1)
[2022-06-08] MEDS: INSULIN REGULAR, HUMAN 100 UNIT/1 ML SQ SCH ×4 (07:30→22:32)
[2022-06-08 08:00] VITALS: BP 109/51
[2022-06-08 09:00] VITALS: BP 109/51
[2022-06-08] MEDS: HYDRALAZINE HCL 25 MG TAB PO SCH ×3 (09:00→16:42)
[2022-06-08] MEDS: CYANOCOBALAMIN 1,000 MCG TAB PO SCH (10:16)
[2022-06-08] MEDS: CLOPIDOGREL BISULFATE 75 MG TAB PO SCH (10:17)
[2022-06-08] MEDS: FUROSEMIDE INJ 10 MG/ML 4 ML VIAL IV SCH ×2 (10:18→22:02)
[2022-06-08] MEDS: POTASSIUM CHLORIDE 10MEQ EA PO SCH (10:18)
[2022-06-08] MEDS: ASPIRIN 81 MG CHEW TAB PO SCH (10:18)
[2022-06-08 12:00] VITALS: BP 138/58
[2022-06-08] MEDS: IRON SUCROSE 100 MG in SODIUM CHLORIDE 0.9% 100 ML IV SCH (13:04)
[2022-06-08 16:00] VITALS: BP 127/51
[2022-06-08 20:00] VITALS: BP 116/59
[2022-06-08] MEDS: ATORVASTATIN 40 MG TAB PO SCH (22:00)
[2022-06-08] MEDS: LOSARTAN POTASSIUM 100 MG TAB PO SCH (22:01)
[2022-06-08] MEDS: ATENOLOL 50 MG TAB PO SCH (22:02)
[2022-06-08] MEDS: INSULIN GLARGINE 100 UNITS/ML VIAL SQ SCH (22:30)
[2022-06-09] VITALS (8 sets, daily range): BP systolic 122–139; BP diastolic 41–57
[2022-06-09] MEDS: FUROSEMIDE INJ 10 MG/ML 4 ML VIAL IV SCH ×2 (09:09→21:01)
[2022-06-09] MEDS: HYDRALAZINE HCL 25 MG TAB PO SCH ×2 (09:10→17:54)
[2022-06-09] MEDS: POTASSIUM CHLORIDE 10MEQ EA PO SCH (09:11)
[2022-06-09] MEDS: CYANOCOBALAMIN 1,000 MCG TAB PO SCH (09:12)
[2022-06-09] MEDS: CLOPIDOGREL BISULFATE 75 MG TAB PO SCH (09:12)
[2022-06-09] MEDS: ASPIRIN 81 MG CHEW TAB PO SCH (09:12)
[2022-06-09] MEDS: INSULIN REGULAR, HUMAN 100 UNIT/1 ML SQ SCH ×4 (09:24→21:14)
[2022-06-09] MEDS ORDERED: LIDOCAINE HCL 2% LOCAL INJ 5 ML SDV VIAL INJ ONE (11:26)
[2022-06-09] MEDS ORDERED: GLUCAGON FOR INJ 1 MG VIAL ONE (11:26)
[2022-06-09] MEDS ORDERED: SODIUM CHLORIDE 0.9% 0 ML ONE (12:13)
[2022-06-09] MEDS ORDERED: FENTANYL CITRATE/PF 100MCG/2 ML INJ ONE (12:14)
[2022-06-09] MEDS: IRON SUCROSE 100 MG in SODIUM CHLORIDE 0.9% 100 ML IV SCH (12:19)
[2022-06-09 17:46] LABS: ANION GAP 17.8 mmol/L (8-16); CALCIUM 10.2 mg/dL (8.4-10.2); CREATININE, SERUM 1.72 mg/dL (0.72-1.25); POTASSIUM 3.8 mmol/L (3.5-5.1)
[2022-06-09] MEDS: INSULIN GLARGINE 100 UNITS/ML VIAL SQ SCH (21:00)
[2022-06-09] MEDS: LOSARTAN POTASSIUM 100 MG TAB PO SCH (21:05)
[2022-06-09] MEDS: ATORVASTATIN 40 MG TAB PO SCH (21:06)
[2022-06-09] MEDS: ATENOLOL 50 MG TAB PO SCH (21:06)
[2022-06-10] VITALS: BP 130/55
[2022-06-10 05:08] LABS: BASOPHILS # (AUTO) 0.1 (0.0-0.1); BASOPHILS % 0.9 % (0.0-1.0); EOSINOPHILS # (AUTO) 0.2 (0.0-0.4); HEMATOCRIT 28.3 % (38.2-49.6); HEMOGLOBIN 9.1 g/dL (14.0-18.0); LYMPHOCYTES # (AUTO) 1.3 (1.0-3.2); LYMPHOCYTES % 16.6 % (18.0-39.1); MEAN CORPUSCULAR HEMOGLOBIN 28.3 pg (28-32); MEAN CORPUSCULAR HGB CONC 32.2 g/dL (31-35); MEAN CORPUSCULAR VOLUME 88.2 fL (81-99); MONOCYTES % 12.1 % (4.4-11.3); NEUTROPHILS # (AUTO) 5.3 (2.1-6.9); NEUTROPHILS % 66.5 % (38.7-80.0); PLATELET COUNT 221 x10e3/uL (140-360); RED BLOOD COUNT 3.21 x10e6/uL (4.3-5.7); RED CELL DISTRIBUTION WIDTH 13.6 % (11.7-14.4)
[2022-06-10 05:28] LABS: ANION GAP 16.5 mmol/L (8-16); CALCIUM 9.5 mg/dL (8.4-10.2); CREATININE, SERUM 1.73 mg/dL (0.72-1.25); POTASSIUM 3.5 mmol/L (3.5-5.1)
[2022-06-10 07:52] VITALS: BP 120/55
[2022-06-10 09:00] VITALS: BP 120/55
[2022-06-10] MEDS: ASPIRIN 81 MG CHEW TAB PO SCH (09:18)
[2022-06-10] MEDS: CYANOCOBALAMIN 1,000 MCG TAB PO SCH (09:18)
[2022-06-10] MEDS: HYDRALAZINE HCL 25 MG TAB PO SCH (09:18)
[2022-06-10] MEDS: CLOPIDOGREL BISULFATE 75 MG TAB PO SCH (09:18)
[2022-06-10] MEDS: FUROSEMIDE INJ 10 MG/ML 4 ML VIAL IV SCH (09:19)
[2022-06-10] MEDS: INSULIN REGULAR, HUMAN 100 UNIT/1 ML SQ SCH (09:21)
[2022-06-10] MEDS: POTASSIUM CHLORIDE 10MEQ EA PO SCH (09:25)
== END 2022-06-10 11:25 | disposition home or self-care (01) | DRG 291 ==
LOC: FSED 11:02 → ERHOLD 13:39 → MED/SURG2 14:15
PROVIDERS: ADMIT Internal Medicine; ATTEND Internal Medicine
PROC: 0DB78ZX Excision of Stomach, Pylorus, Via Natural or Artificial Opening Endoscopic, Diagnostic (ICD-10-PCS; principal; 2022-06-09 16:03)
DX: I13.0 Hypertensive heart and chronic kidney disease with heart failure and stage 1 through stage 4 chronic kidney disease, or unspecified chronic kidney disease (principal); I50.33 Acute on chronic diastolic (congestive) heart failure; N18.9 Chronic kidney disease, unspecified; I25.10 Atherosclerotic heart disease of native coronary artery without angina pectoris; Z95.5 Presence of coronary angioplasty implant and graft; E66.09 Other obesity due to excess calories; Z68.37 Body mass index [BMI] 37.0-37.9, adult; E11.22 Type 2 diabetes mellitus with diabetic chronic kidney disease; E78.5 Hyperlipidemia, unspecified; E11.69 Type 2 diabetes mellitus with other specified complication; K21.9 Gastro-esophageal reflux disease without esophagitis; I16.0 Hypertensive urgency; E66.01 Morbid (severe) obesity due to excess calories; Z95.1 Presence of aortocoronary bypass graft; D50.9 Iron deficiency anemia, unspecified; K44.9 Diaphragmatic hernia without obstruction or gangrene
CPT/HCPCS: 36415; 43239; 71045; 71250; 74176; 80048; 80053; 82270; 82550; 82553; 82607; 82746; 82948; 83036; 83540; 83880; 84443; 84466; 84484; 85025; 85610; 88304; 88305; 88312; 88342; 93005; 93306; 96374; 99284; J1610; J1756; J1815; J1940; J2001; J7050

== ENCOUNTER 2022-11-29 13:14 | Emergency (ER) | payer OTHER, MEDICARE ==
[~2022-11-29] VITALS: Ht 167.6 cm; Wt 104.3 kg
[~2022-11-29 13:14] MED LIST changes: +FUROSEMIDE40 MG PO; +STROVITE FORTE1 EACH; +VITAMIN B-121000 MCG PO; +VITAMIN D250 MC1; +VITAMIN D350 MCG
[2022-11-29] MEDS ORDERED: FUROSEMIDE20 MG PO (16:06)
[2022-11-29 16:15] VITALS: O2SAT 99
== END 2022-11-29 16:31 | disposition home or self-care (01) ==
LOC: FSED 13:22
DX: S00.83XA Contusion of other part of head, initial encounter (principal); S30.1XXA Contusion of abdominal wall, initial encounter; S20.212A Contusion of left front wall of thorax, initial encounter; V43.51XA Car driver injured in collision with sport utility vehicle in traffic accident, initial encounter; Y92.488 Other paved roadways as the place of occurrence of the external cause; I12.9 Hypertensive chronic kidney disease with stage 1 through stage 4 chronic kidney disease, or unspecified chronic kidney disease; E11.22 Type 2 diabetes mellitus with diabetic chronic kidney disease; N18.30 Chronic kidney disease, stage 3 unspecified; E78.5 Hyperlipidemia, unspecified; I50.9 Heart failure, unspecified; I48.91 Unspecified atrial fibrillation; I25.10 Atherosclerotic heart disease of native coronary artery without angina pectoris; D64.9 Anemia, unspecified; Z95.1 Presence of aortocoronary bypass graft; Z95.5 Presence of coronary angioplasty implant and graft
CPT/HCPCS: 70450; 71101; 99283

== ENCOUNTER 2024-09-15 11:08 | Inpatient (IN) | payer MEDICARE, OTHER ==
[~2024-09-15] VITALS: Ht 167.6 cm; Wt 93.9 kg
[~2024-09-15 11:08] MED LIST changes: -BASAGLAR K100 UNIT/1 SQ; -CARAFATE1 GM PO; -humalog SQ; -senokot PO
[2024-09-15 11:35] VITALS: TEMP 97.9
[2024-09-15 12:50] LABS: EST GLOMERULAR FILTRATION RATE 24.0 ML/MIN (>=60)
[2024-09-15] MEDS: SODIUM CHLORIDE 0.9% 1000ML 1,000 ML IV SCH (14:00)
[2024-09-15] MEDS ORDERED: ONDANSETRON HCL INJ 2MG/ML 2ML 2 MG/ML VIAL IV PRN (14:00)
[2024-09-15] MEDS: SODIUM CHLORIDE 0.9% 1000ML 1,000 ML IV STA (14:09)
[2024-09-15] MEDS: INSULIN REGULAR, HUMAN 100 UNIT/1 ML SQ ONE (14:10)
[2024-09-15 14:13] VITALS: PULSE 65; RESP 18
[2024-09-15 14:35] VITALS: BP 184/59; PULSE 66; RESP 18; TEMP 97.6; O2SAT 99
[2024-09-15 14:59] VITALS: BP 184/59; PULSE 66; RESP 18; TEMP 97.6; O2SAT 100
[2024-09-15] MEDS ORDERED: BASAGLAR K100 UNIT/1 SQ (15:19)
[2024-09-15] MEDS ORDERED: DEXTROSE 50% SYRINGE 50 ML IV PRN (15:30)
[2024-09-15] MEDS: INSULIN LISPRO 100 UNIT/1 ML 3ML VIAL SQ SCH (16:35)
[2024-09-15] MEDS: LOSARTAN POTASSIUM 100 MG TAB PO SCH (17:56)
[2024-09-15] MEDS: HYDRALAZINE HCL 25 MG TAB PO SCH ×2 (17:57→23:43)
[2024-09-15 20:00] VITALS: BP 152/61; PULSE 68; RESP 17; TEMP 97.7; O2SAT 100
[2024-09-15] MEDS: PANTOPRAZOLE SOD 40 MG TABEC PO SCH (20:59)
[2024-09-15 21:00] VITALS: BP 152/61; PULSE 68; RESP 18; TEMP 97.7; O2SAT 100
[2024-09-15] MEDS: INSULIN GLARGINE 100 UNITS/ML VIAL SQ SCH (21:04)
[2024-09-15 21:55] LABS: LEUKOCYTE ESTERASE ,URINE NEGATIVE (NEGATIVE); PROTEIN,URINE DIPSTICK 2+ (NEGATIVE); URINE UROBILINOGEN 0.2 mg/dL (0.2 - 1)
[2024-09-15 22:28] LABS: EPITHELIAL CELLS,URINE FEW /LPF; HYALINE CASTS 0-1 (0-1); WBC,URINE (MAN) 0-5 /HPF (0-5)
[2024-09-15] MEDS: AMLODIPINE BESYLATE 10 MG TAB PO ONE (23:43)
[2024-09-16] VITALS (11 sets, daily range): BP systolic 105–184; BP diastolic 49–62; PULSE 66–74; RESP 17–21; TEMP 97.3–97.9; O2SAT 99–100
[2024-09-16] MEDS: SODIUM CHLORIDE 0.9% 1000ML 1,000 ML IV SCH (00:37)
[2024-09-16] MEDS: INSULIN LISPRO 100 UNIT/1 ML 3ML VIAL SQ ONE (00:39)
[2024-09-16 06:24] LABS: BASOPHILS % 0.8 % (0.0-1.0); EOSINOPHILS % 2.4 % (0.0-6.0); LYMPHOCYTES % 16.6 % (18.0-39.1); MONOCYTES % 9.4 % (4.4-11.3); NEUTROPHILS % 69.3 % (38.7-80.0); RED CELL DISTRIBUTION WIDTH 13.0 % (11.7-14.4)
[2024-09-16 06:54] LABS: EST GLOMERULAR FILTRATION RATE 26.0 ML/MIN (>=60)
[2024-09-16] MEDS ORDERED: ATORVASTATIN 40 MG TAB PO SCH (09:00)
[2024-09-16] MEDS ORDERED: ASPIRIN 81 MG CHEW TAB PO SCH (09:00)
[2024-09-16] MEDS ORDERED: HYDROCHLOROTHIAZIDE 25 MG TAB PO SCH (09:00)
[2024-09-16] MEDS ORDERED: CLOPIDOGREL BISULFATE 75 MG TAB PO SCH (09:00)
[2024-09-16] MEDS: INSULIN LISPRO 100 UNIT/1 ML 3ML VIAL SQ SCH (09:08)
[2024-09-16] MEDS: AMLODIPINE BESYLATE 10 MG TAB PO SCH (09:12)
[2024-09-17] VITALS: BP 132/49; PULSE 64; RESP 18; TEMP 97.2; O2SAT 100
[2024-09-17] MEDS: BISACODYL 5 MG TAB EC PO ONE (00:21)
[2024-09-17] MEDS: BISACODYL 5 MG TAB EC PO SCH (00:56)
[2024-09-17 01:27] LABS: % IRON SATURATION 20 % (15-50)
[2024-09-17] MEDS: CITRATE OF MAGNESIA 300ML BOTTLE PO SCH ×2 (05:44→08:42)
[2024-09-17 08:45] VITALS: BP 123/43; PULSE 70; RESP 18; TEMP 97.6; O2SAT 100
[2024-09-17] MEDS: INSULIN LISPRO 100 UNIT/1 ML 3ML VIAL SQ SCH ×2 (10:43→12:05)
[2024-09-17 12:20] VITALS: BP 143/53; PULSE 69; RESP 18; TEMP 97.5; O2SAT 100
[2024-09-17] MEDS ORDERED: ONDANSETRON HCL INJ 2MG/ML 2ML 2 MG/ML VIAL ONE (13:59)
[2024-09-17] MEDS ORDERED: HYOSCYAMINE SULFATE 0.5 MG/ML INJ ONE (13:59)
[2024-09-17] MEDS ORDERED: PROPOFOL IV EMULSION 50 ML IV ONE (13:59)
[2024-09-17] MEDS ORDERED: LIDOCAINE HCL 2% LOCAL INJ 5 ML SDV VIAL INJ ONE (13:59)
[2024-09-17] MEDS ORDERED: FENTANYL CITRATE/PF 100MCG/2 ML INJ ONE (13:59)
[2024-09-17] MEDS ORDERED: GLUCAGON FOR INJ 1 MG VIAL ONE (16:20)
[2024-09-17 17:31] VITALS: BP 140/56; PULSE 72; RESP 18; TEMP 97.3; O2SAT 100
[2024-09-17 20:00] VITALS: BP 135/76; PULSE 63; RESP 18; TEMP 97.5; O2SAT 98
[2024-09-17 21:36] VITALS: BP 135/46; PULSE 63; RESP 20; TEMP 97.5; O2SAT 99
[2024-09-17] MEDS: DEXTROSE 5%/0.9% SOD CHL 1,000 ML IV ONE (23:16)
[2024-09-18] VITALS (8 sets, daily range): BP systolic 116–179; BP diastolic 48–72; PULSE 63–76; RESP 18–20; TEMP 97.2–97.8; O2SAT 97–100
[2024-09-18] MEDS: LACTATED RINGER'S 0 ML ONE (07:26)
[2024-09-18] MEDS: DEXTROSE 50% SYRINGE 50 ML IV ONE (07:26)
[2024-09-18] MEDS: SODIUM CHLORIDE 0.9% 1000ML 1,000 ML ONE (07:26)
[2024-09-18 07:58] LABS: BASOPHILS % 0.4 % (0.0-1.0); EOSINOPHILS % 1.6 % (0.0-6.0); LYMPHOCYTES % 17.5 % (18.0-39.1); MONOCYTES % 9.2 % (4.4-11.3); NEUTROPHILS % 70.3 % (38.7-80.0); RED CELL DISTRIBUTION WIDTH 13.3 % (11.7-14.4)
[2024-09-18 08:13] LABS: EST GLOMERULAR FILTRATION RATE 38.0 ML/MIN (>=60)
[2024-09-18] MEDS: HYDRALAZINE HCL 20 MG/ML VIAL IV PRN (08:33)
[2024-09-18] MEDS: LORATADINE 10 MG TAB PO SCH (09:42)
[2024-09-18] MEDS: IRON SUCROSE 100 MG in SODIUM CHLORIDE 0.9% 100 ML IV SCH (09:43)
[2024-09-18] MEDS: POTASSIUM CHLORIDE 10MEQ EA PO ONE (11:24)
[2024-09-18] MEDS: HYDRALAZINE HCL 25 MG TAB PO SCH (14:22)
[2024-09-18] MEDS: NIFEDIPINE CR 30 MG TAB PO SCH (20:33)
[2024-09-19] VITALS: BP 120/52; PULSE 72; RESP 20; TEMP 97.9; O2SAT 99
[2024-09-19 04:00] VITALS: BP 135/60; PULSE 76; RESP 20; TEMP 97.8; O2SAT 98
[2024-09-19 06:32] LABS: BASOPHILS % 0.9 % (0.0-1.0); EOSINOPHILS % 3.1 % (0.0-6.0); LYMPHOCYTES % 23.1 % (18.0-39.1); MONOCYTES % 9.9 % (4.4-11.3); NEUTROPHILS % 61.2 % (38.7-80.0); RED CELL DISTRIBUTION WIDTH 13.4 % (11.7-14.4)
[2024-09-19 07:19] LABS: EST GLOMERULAR FILTRATION RATE 37.0 ML/MIN (>=60)
[2024-09-19 07:59] VITALS: BP 150/66; PULSE 86; RESP 20; TEMP 97.9; O2SAT 100
[2024-09-19 09:41] VITALS: BP 150/66; PULSE 86; RESP 20; TEMP 97.9; O2SAT 100
[2024-09-19 11:39] VITALS: BP 153/55; PULSE 83; RESP 18; TEMP 97.7; O2SAT 100
[2024-09-19] MEDS ORDERED: CARAFATE1 GM PO (11:54)
[2024-09-19] MEDS ORDERED: humalog SQ (11:54)
[2024-09-19] MEDS ORDERED: senokot PO (11:55)
== END 2024-09-19 12:10 | disposition home or self-care (01) | DRG 638 ==
LOC: ER 11:43 → ERHOLD 13:59 → MED/SURG2 14:59
PROVIDERS: ADMIT Internal Medicine; ATTEND Internal Medicine
PROC: 4A043B1 Measurement of Venous Pressure, Peripheral, Percutaneous Approach (ICD-10-PCS; 2024-09-15)
PROC: 0DJD8ZZ Inspection of Lower Intestinal Tract, Via Natural or Artificial Opening Endoscopic (ICD-10-PCS; 2024-09-17)
PROC: 0DB98ZX Excision of Duodenum, Via Natural or Artificial Opening Endoscopic, Diagnostic (ICD-10-PCS; principal; 2024-09-17 16:00)
PROC: 0DB78ZX Excision of Stomach, Pylorus, Via Natural or Artificial Opening Endoscopic, Diagnostic (ICD-10-PCS; 2024-09-17 16:00)
DX: E11.10 Type 2 diabetes mellitus with ketoacidosis without coma (principal); I13.0 Hypertensive heart and chronic kidney disease with heart failure and stage 1 through stage 4 chronic kidney disease, or unspecified chronic kidney disease; N17.9 Acute kidney failure, unspecified; N18.4 Chronic kidney disease, stage 4 (severe); E11.22 Type 2 diabetes mellitus with diabetic chronic kidney disease; E78.5 Hyperlipidemia, unspecified; K57.90 Diverticulosis of intestine, part unspecified, without perforation or abscess without bleeding; K29.00 Acute gastritis without bleeding; E86.0 Dehydration; I25.10 Atherosclerotic heart disease of native coronary artery without angina pectoris; I48.91 Unspecified atrial fibrillation; I50.9 Heart failure, unspecified; D63.1 Anemia in chronic kidney disease; M19.90 Unspecified osteoarthritis, unspecified site; I16.0 Hypertensive urgency; E66.9 Obesity, unspecified; E11.649 Type 2 diabetes mellitus with hypoglycemia without coma; T38.3X5A Adverse effect of insulin and oral hypoglycemic [antidiabetic] drugs, initial encounter; Y92.239 Unspecified place in hospital as the place of occurrence of the external cause; K21.00 Gastro-esophageal reflux disease with esophagitis, without bleeding; K44.9 Diaphragmatic hernia without obstruction or gangrene; D50.9 Iron deficiency anemia, unspecified; K64.8 Other hemorrhoids; Z79.4 Long term (current) use of insulin; Z79.890 Hormone replacement therapy; Z79.84 Long term (current) use of oral hypoglycemic drugs; Z79.82 Long term (current) use of aspirin; Z79.01 Long term (current) use of anticoagulants; Z95.1 Presence of aortocoronary bypass graft; Z95.5 Presence of coronary angioplasty implant and graft; Z88.5 Allergy status to narcotic agent
CPT/HCPCS: 36415; 43239; 45378; 80048; 81001; 82607; 82746; 82948; 83036; 83540; 84466; 85025; 85045; 88305; 88313; 99283; J0360; J1610; J1756; J1980; J2003; J2405; J2470; J7030; J7042; J7050; J7799

== ENCOUNTER → 2024-09-15 | Outpatient (REF) | payer OTHER ==
[2024-09-08 09:44] LABS: BASOPHILS % 0.9 % (0.0-1.0); EOSINOPHILS % 2.3 % (0.0-6.0); LYMPHOCYTES % 16.3 % (18.0-39.1); MONOCYTES % 9.0 % (4.4-11.3); NEUTROPHILS % 70.1 % (38.7-80.0); RED CELL DISTRIBUTION WIDTH 13.2 % (11.7-14.4)
[2024-09-08 10:07] LABS: INR 0.81
[2024-09-08 10:13] LABS: EST GLOMERULAR FILTRATION RATE 29.0 ML/MIN (>=60)
[~2024-09-15] MED LIST changes: +AMIODARONE HCL200 MG PO; +BASAGLAR K100 UNIT/1 SQ; +CARAFATE1 GM PO; +FUROSEMIDE20 MG PO; +GLIPIZIDE5 MG PO; +LEVOTHYROXINE50 MCG PO; +NOVOLOG MI100 UNIT/1 SC; +humalog SQ; +senokot PO
== END ==
LOC: RAD 08:01 → EDSTATUS 09:00 → OR 10:17
PROVIDERS: ATTEND Internal Medicine Gastroenterology
DX: Z01.818 Encounter for other preprocedural examination (principal); D64.9 Anemia, unspecified; Z86.0100 Personal history of colon polyps, unspecified
CPT/HCPCS: 36415; 80048; 82948; 85025; 85610; 85730; 93005; J2470